=== PATIENT | female | born 1990 | race Caucasian/White ===

== ENCOUNTER 2022-03-01 01:26 | Day surgery (SDC) | payer OTHER, SELFPAY ==
[2022-02-27 09:24] VITALS: BMI 43.4
--- NOTE | 2022-02-27 09:34 | PC.NURSE ---
Report to the Outpatient Waiting Room, entrance under the green pavilion located off [facility], at time 7:30 on date 03/01/22. OR Time: 9:30. - You and your visitor will be asked a series of questions to screen for COVID 19 for your protection. - A mask is required within the hospital. One visitor will be allowed to accompany the patient into the hospital. Patients visitor will be instructed to remain with patient at all times or leave the building. We will allow the visitor to come back to the postoperative area when patient is ready. Preoperative COVID Testing Requirements: No COVID Test needed if: (proof is required; if not received patient will have Rapid Test prior to entry) - Patient has received COVID Vaccine at least 14 days prior to procedure date or - Patient has positive COVID test result within last 90 days of surgery date. COVID Test needed if above criteria is not met Patients may have clear liquids (water, carbonated beverages, clear teas, apple juice) until 3 hours prior to surgery (6:30) with a maximum of 20 ounces. - No food from midnight until time of surgery Take the following medications with a SIP of water the morning of surgery: CELEXA, DEPAKOTE, GEODON Medications to discontinue per physician: N/A Date to take last dose: N/A Please no make-up, nail sudanese, hairspray, perfume, deodorant, or body powder the day of surgery. No jewelry (including any body piercings) or valuables the day of surgery, leave them at home. Please take a shower or bath the night before, or the morning of, surgery with an antibacterial soap. Wear comfortable, loose fitting clothing. - Jewelry must be removed prior to entering the operating room. Rings and piercings that are not removed may be cut off. - The hospital will not accept responsibility for valuables. - Please leave all valuables, including medications, at home the day of surgery. If you are going home after surgery, a licensed auto carrier driver must drive you home. - NO public transportation without another adult. - We recommend that an adult stay with you for 24 hours following discharge. - We also recommend that you do not drive, make important decision, drink alcoholic beverages, or take any drugs that were not prescribed by your health care provider for at least 24 hours after your discharge time. Follow any additional instructions given to you from your surgeon. Telephone instructions given to CHARISSE STRICKLAND AND FAXED TO [facility] and asked if any additional questions and then verbalized understanding. Patient advised to call surgeon office or pre surgery nurse liaison [phone] if any additional questions.
[2022-03-01 06:07] VITALS: BP 128/75; PULSE 102; RESP 20; TEMP 36.7; O2SAT 100
[2022-03-01] MEDS: LACTATED RINGERS 1,000 ML 30 ML IV CONT (06:40)
--- NOTE | 2022-03-01 06:59 | WPDANESEPPF ---
Anes - Initial Pre Proc Eval Procedure: Operation Date: 03/01/22 07:30 Proposed Procedures p Right Open Carpal Tunnel Release, Steroid Injection Right Thumb Trigger Digit - Francisco Guevara MD Date/Time: 03/01/22 06:59 Surgeon: Francisco Guevara MD Pre Op Diagnosis: right carpal tunnel syndrome, right trigger thumb Patient Data Age: 31 Gender: F Height: 1.55 m Weight: 104.33 kg Allergies Allergy/AdvReac Type Severity Reaction Status Date / Time No Known Allergies Allergy Verified 03/01/22 06:09 Home Medications Medication Instructions Recorded Confirmed Type acetaminophen [Tylenol Extra 500 mg PO Q4H PRN 02/27/22 03/01/22 History Strength] baclofen 10 mg PO BID PRN 02/27/22 02/27/22 History citalopram 20 mg PO DAILY 02/27/22 03/01/22 History diphenhydramine HCl 25 mg PO Q6H PRN 02/27/22 02/27/22 History divalproex 250 mg PO QAM 02/27/22 03/01/22 History divalproex 500 mg PO HS 02/27/22 03/01/22 History ibuprofen 600 mg PO Q6H PRN 02/27/22 02/27/22 History medroxyprogesterone 150 mg IM [id number] 02/27/22 02/27/22 History methyl salicylate-menthol [Muscle 1 applic TOPICAL QID PRN 02/27/22 03/01/22 History Rub Cream] nitroglycerin 0.4 mg SUBLINGUAL Q5M PRN 02/27/22 02/27/22 History ziprasidone HCl [Geodon] 20 mg PO DAILY 02/27/22 03/01/22 History Patient hx anesthesia problems: none Family hx anesthesia problems: none Results Review: All pre-operative results and documents have been reviewed as part of the pre-operative evaluation. [facility] Past Medical History Medical History ADHD Anxiety Bipolar disorder Depression Social History Social History Smoking status: Never smoker Alcohol intake: never Substance use: former Substance use type: marijuana Living arrangements: assisted living Additional living arrangements comments: [facility] concerns: No Anes - Eval Final PreProcedure Day of Procedure 03/01/22 06:59 Patient weight: morbidly obese Heart: regular rate and rhythm Lungs: clear to auscultation Airway: Mallampati scale class II Neurological: alert and oriented Last oral intake: >/= 8 hours ASA classification: III Emergent: no Anesthetic plan: proceed Anesthesia type and monitoring: general GIVS and standard monitoring Results Review: All pre-operative results and documents have been reviewed as part of the pre-operative evaluation. Informed Consent: The patient's anesthetic plan and its attendant risks and benefits were discussed with the patient/family/POA. Questions were solicited and answers provided to the satisfaction of the patient/family/POA.
--- NOTE | 2022-03-01 07:14 | WPDHPUPDATE1 ---
History and Physical Update Update Date/Time: 03/01/22 07:14 History and Physical has been reviewed, including an updated exam of the patient. There are NO changes in the patient's condition. Risks, benefits, and alternatives have been discussed and questions answered. Patient agrees to proceed with procedure.
[2022-03-01] MEDS: BETAMETHASONE SOD PHOS/ACETATE 30 MG/5 ML VIAL 12 MG IM (07:50)
[2022-03-01 07:57] VITALS: BP 102/62; PULSE 87; RESP 19; O2SAT 99
[2022-03-01] MEDS: LIDO 1%/EPINEPHRINE/PF 1:200,000 30 ML VIAL INFILTRATE (07:58)
[2022-03-01 08:25] VITALS: BP 115/64; PULSE 86; RESP 20
[2022-03-01 08:55] VITALS: BP 118/60; PULSE 86; RESP 20
--- NOTE | 2022-03-01 11:20 | W.PM.PROC2 ---
Procedure Note - Detailed Date of Procedure 03/01/22 Pre-op Diagnosis right carpal tunnel syndrome, right trigger thumb Post-op Diagnosis Same Procedure Performed Right open carpal tunnel release Surgeon Francisco Guevara MD Anesthesia MAC Description of Procedure The right carpal tunnel was marked in the holding area. The patient was taken to the operating room and placed supine on the operating table. He was given IV sedation. The right upper extremity was prepped and draped in usual fashion. A time-out was held and confirmed. The tourniquet was inflated to 250 mmHg. The site was infiltrated with 1% lidocaine with epinephrine.. The incision made as marked and dissection was carried bluntly through the subcutaneous tissue to the palmar fascia. This and the carpal retinaculum were incised with a number 15 blade. With 3 point retraction the ligament was divided distally proximally for complete release. There was no unusual anatomy noted. The skin was then closed with interrupted 5 0 nylon suture. The usual bandage was applied and the tourniquet was released prior to wound closure. She is discharged home with instructions in wound care and follow-up. Estimated Blood Loss 1 Tourniquet Time 7 Drains No Packing No Pathology None sent Complications No immediate complications Condition Stable Disposition Same day
== END 2022-03-01 09:02 | disposition home or self-care (01) ==
PROVIDERS: PCP Family Medicine; Visit Provider Plastic Surgery
PROC: (CPT 64721; principal; 2022-03-01 07:30)
DX: G56.01 Carpal tunnel syndrome, right upper limb (principal); M65.311 Trigger thumb, right thumb; F90.9 Attention-deficit hyperactivity disorder, unspecified type; G24.9 Dystonia, unspecified; F31.9 Bipolar disorder, unspecified; F41.9 Anxiety disorder, unspecified; E66.01 Morbid (severe) obesity due to excess calories; Z68.41 Body mass index [BMI] 40.0-44.9, adult
CPT/HCPCS: 64721; 20550; A9270; J0702; J1100; J2250; J2704; J3010; J7120

== ENCOUNTER 2022-06-21 01:28 | Day surgery (SDC) | payer OTHER, SELFPAY ==
[2022-06-18 11:04] VITALS: BMI 46.0
--- NOTE | 2022-06-18 11:09 | PC.NURSE ---
Report to the Outpatient Waiting Room, entrance under the green pavilion located off [facility], at time 9:00 on date 06/21/22. Procedure Time: 11:00. - You and your visitor will be asked a series of questions to screen for COVID 19 for your protection. - Only one visitor is allowed at this time. - The patient visitor is requested to leave or wait in car when not with patient. - A mask is required within the hospital. Patients may have clear liquids (water, carbonated beverages, clear teas, apple juice) until 3 hours prior to surgery (8:00) with a maximum of 20 ounces. - No food from midnight until time of surgery Take the following medications with a SIP of water the morning of surgery: CELEXA, DEPAKOTE, GEODON Medications to discontinue per physician: N/A Date to take last dose: N/A Please no make-up, nail vietnamese, hairspray, perfume, deodorant, or body powder the day of surgery. No jewelry (including any body piercings) or valuables the day of surgery, leave them at home. Please take a shower or bath the night before, or the morning of, surgery with an antibacterial soap. Wear comfortable, loose fitting clothing. - Jewelry must be removed prior to entering the operating room. Rings and piercings that are not removed may be cut off. - The hospital will not accept responsibility for valuables. - Please leave all valuables, including medications, at home the day of surgery. If you are going home after surgery, a licensed lunch truck driver must drive you home. - NO public transportation without another adult. - We recommend that an adult stay with you for 24 hours following discharge. - We also recommend that you do not drive, make important decision, drink alcoholic beverages, or take any drugs that were not prescribed by your health care provider for at least 24 hours after your discharge time. Follow any additional instructions given to you from your surgeon. If you or anyone in your household have experienced Covid symptoms in the past week, please notify your surgeon or the nurse liaison at the phone number below for possible testing. WRITTEN instructions FAXED to JESSE RUFFIN WITH # TO CALL FOR QUESTIONS. Patient advised to call surgeon office or pre surgery nurse liaison [phone] if any additional questions.
[2022-06-21] VITALS (9 sets, daily range): BP systolic 109–136; BP diastolic 66–80; PULSE 74–91; RESP 14–18; TEMP 36.2–36.3; O2SAT 94–99
--- NOTE | 2022-06-21 08:21 | WPDHPUPDATE1 ---
History and Physical Update Update Date/Time: 06/21/22 08:21 History and Physical has been reviewed, including an updated exam of the patient. There are NO changes in the patient's condition. Risks, benefits, and alternatives have been discussed and questions answered. Patient agrees to proceed with procedure.
[2022-06-21] MEDS: LACTATED RINGERS 1,000 ML 30 ML IV CONT (11:00)
--- NOTE | 2022-06-21 11:15 | WPDANESEPPF ---
Anes - Initial Pre Proc Eval Procedure: Operation Date: 06/21/22 13:00 Proposed Procedures p Left Open Carpal Tunnel Release - Francisco Guevara MD Date/Time: 06/21/22 11:15 Surgeon: Francisco Guevara MD Pre Op Diagnosis: Lt Carpal Tunnel Release Patient Data Age: 32 Gender: F Height: 1.55 m Weight: 110.5 kg Allergies Allergy/AdvReac Type Severity Reaction Status Date / Time No Known Allergies Allergy Verified 03/01/22 06:09 Home Medications Medication Instructions Recorded Confirmed Type acetaminophen 500 mg tablet 500 mg PO Q4H PRN Pain 02/27/22 06/18/22 History (Tylenol Extra Strength) baclofen 10 mg tablet 10 mg PO BID PRN Pain 02/27/22 06/18/22 History diphenhydramine HCl 25 mg capsule 25 mg PO Q6H PRN Itching 02/27/22 06/18/22 History divalproex 250 mg tablet,delayed 250 mg PO QAM 02/27/22 06/18/22 History release divalproex 500 mg tablet,extended 500 mg PO HS 02/27/22 06/18/22 History release 24 hr ibuprofen 600 mg tablet 600 mg PO Q6H PRN Pain 02/27/22 06/18/22 History methyl salicylate-menthol topical 1 applic topical QID PRN Pain 02/27/22 06/18/22 History cream nitroglycerin 0.4 mg sublingual 0.4 mg sublingual Q5M PRN Chest 02/27/22 06/18/22 History tablet Pain ziprasidone HCl 20 mg capsule 20 mg PO DAILY 02/27/22 06/18/22 History (Geodon) citalopram 40 mg tablet (Celexa) 40 mg PO DAILY 06/18/22 06/18/22 History imiquimod 5 % topical cream packet 1 applic topical DAILY 06/18/22 06/18/22 History polyvinyl alcohol 1.4 % eye drops 1 drp EACH EYE QID PRN Dry Eyes 06/18/22 06/18/22 History (Artificial Tears (polyvinyl alcohol)) Patient hx anesthesia problems: none Family hx anesthesia problems: none Results Review: All pre-operative results and documents have been reviewed as part of the pre-operative evaluation. [facility] Past Medical History Medical History ADHD Anxiety Bipolar disorder Depression Hx of migraines Social History Social History Smoking status: Never smoker Alcohol intake: never Substance use: former Substance use type: marijuana Living arrangements: intermediate Additional living arrangements comments: [facility] care concerns: No Anes - Eval Final PreProcedure Day of Procedure 06/21/22 11:15 Patient weight: morbidly obese Heart: regular rate and rhythm Lungs: decreased breath sounds Airway: Mallampati scale class II Neurological: alert and oriented Last oral intake: >/= 8 hours ASA classification: III Emergent: no Anesthetic plan: proceed Anesthesia type and monitoring: general LMA and standard monitoring Results Review: All pre-operative results and documents have been reviewed as part of the pre-operative evaluation. Informed Consent: The patient's anesthetic plan and its attendant risks and benefits were discussed with the patient/family/POA. Questions were solicited and answers provided to the satisfaction of the patient/family/POA.
[2022-06-21] MEDS: LIDO 1%/EPINEPHRINE 1:100,000 10 ML VIAL INFILTRATE (11:44)
--- NOTE | 2022-06-21 12:12 | W.PM.PROC2 ---
Procedure Note - Detailed Date of Procedure 06/21/22 Pre-op Diagnosis Lt Carpal Tunnel Release Post-op Diagnosis Same Procedure Performed Left open carpal tunnel release Surgeon Francisco Guveara MD Anesthesia MAC Description of Procedure The carpal tunnel was marked on the patient in the holding area. She was taken to the operating room placed supine on the operating table. She was given IV sedation as the extremity was prepped and draped in usual fashion. A time-out was held and confirmed. The tourniquet was inflated to 250 mmHg. The incision was made as marked on the palm dissection was carried bluntly through the subcutaneous tissue to the palmar fascia. Under 3 point retraction the carpal ligament was incised with a 15. Blade. A complete release was performed under direct vision. There was no unusual anatomy noted. The skin was repaired with interrupted 5 0 nylon suture small bandage with Den wraps applied the tourniquet was released. The patient is being discharged home with instructions in wound care and follow-up. Tourniquet Time 6 Drains No Packing No Pathology None sent Complications No immediate complications Condition Stable Disposition PACU
[2022-06-21] MEDS: oxyCODONE HCL (*CRX) 5 MG TAB IR PO (13:03)
== END 2022-06-21 13:40 | disposition home or self-care (01) ==
PROVIDERS: PCP Family Medicine; Visit Provider Plastic Surgery
PROC: (CPT 64721; principal; 2022-06-21 13:00)
DX: G56.02 Carpal tunnel syndrome, left upper limb (principal); F41.9 Anxiety disorder, unspecified; F31.9 Bipolar disorder, unspecified; F90.9 Attention-deficit hyperactivity disorder, unspecified type; E66.01 Morbid (severe) obesity due to excess calories; Z68.41 Body mass index [BMI] 40.0-44.9, adult
CPT/HCPCS: 64721; A9270; J1100; J2250; J2405; J2704; J3010; J7120